=== PATIENT | female | born 1975 | race Caucasian/White ===

== ENCOUNTER 2018-05-05 12:45 | Emergency (ER) | payer MEDICAID ==
[2018-05-05 13:30] LABS: SQUAMOUS EPITHIAL 8 /hpf (0-5); URINE BACTERIA OCC (<OCC); URINE BILIRUBIN NEGATIVE (NEGATIVE); URINE BLOOD NEGATIVE (NEGATIVE); URINE CLARITY Hazy (Clear); URINE COLOR Yellow (YELLOW); URINE GLUCOSE (UA) NORMAL (Normal); URINE LEUKOCYTE ESTERASE 2+ Leu/uL (Negative); URINE PROTEIN NEGATIVE (NEGATIVE); URINE UROBILINOGEN NORMAL mg/dL (0.2-1.0)
--- NOTE | 2018-05-05 14:53 | C.PDOC ---
History Of Present Illness 42 y/o overweight female with hx kidney stone c/o 8 months of diffuse bilateral back pain; has seen pmd for this, has gone for pt for short while (not currently due to distance and insurance issues) and c/o persistent pain. pt also c/o left pelvic pain x 2 months; has been seen several times by her inside contractor sales; pt reports she was treated for uti with unknown antibiotic, had blood test to check for hormones and pelvic exam; pt sts she took one course of antibiotics and told uti resolved on f/u with travel freight and passenger agent, and told to take nsaid by travel freight and passenger agent. denies fever and chills. no vaginal discharge. Time Seen by Provider: 05/05/18 12:59 Chief Complaint (Nursing): Back Pain History Per: Patient History/Exam Limitations: no limitations Onset/Duration Of Symptoms: Days (months-many ) Current Symptoms Are (Timing): Still Present Quality Of Discomfort: "Pain" Severity: Moderate Previous Symptoms: Back Pain, Neck Pain Associated Symptoms: denies: New Weakness, New Numbness Exacerbating Factor(s): Turning, Movement Past Medical History Reviewed: Historical Data, Nursing Documentation, Vital Signs Vital Signs: Last Vital Signs Temp 98.3 F 05/05/18 15:45 Pulse 73 05/05/18 15:45 Resp 20 05/05/18 15:45 BP 116/74 05/05/18 15:45 Pulse Ox 100 05/05/18 15:45 - Medical History PMH: Kidney Stones Family History: States: Unknown Family Hx - Social History Hx Alcohol Use: No Hx Substance Use: No - Immunization History Hx Tetanus Toxoid Vaccination: No Hx Influenza Vaccination: No Hx Pneumococcal Vaccination: No Review Of Systems Constitutional: Negative for: Fever, Chills Cardiovascular: Negative for: Chest Pain Respiratory: Negative for: Cough, Shortness of Breath Gastrointestinal: Negative for: Nausea, Vomiting, Abdominal Pain Genitourinary: Positive for: Dysuria, Pelvic Pain. Negative for: Vaginal Discharge, Vaginal Bleeding Musculoskeletal: Positive for: Neck Pain, Back Pain Skin: Negative for: Rash Neurological: Negative for: Weakness, Numbness Physical Exam - Physical Exam Appears: Non-toxic, No Acute Distress, Other (overweight) Skin: Warm, Dry Head: Atraumatic, Normacephalic Eye(s): bilateral: Normal Inspection Oral Mucosa: Moist Neck: No Midline Cervical Tenderness, Paracervical Tenderness (bilateral), Supple Cardiovascular: Rhythm Regular, No Murmur Respiratory: No Decreased Breath Sounds, No Wheezing Gastrointestinal/Abdominal: Bowel Sounds, Soft, Tenderness (left pelvic area), No Distention, No Guarding, No Rebound Back: No CVA Tenderness, No Vertebral Tenderness, Paraspinal Tenderness ( bilateral lumbar area) Extremity: No Tenderness, No Swelling Neurological/Psych: Oriented x3, Normal Speech, Normal Cognition, Normal Motor, Normal Sensation ED Course And Treatment - Laboratory Results Urine POC: Negative O2 Sat by Pulse Oximetry: 97 - CT Scan/US transvaginal Other Rad Studies (CT/US): Read By Radiologist, Radiology Report Reviewed CT/US Interpretation: FINDINGS: UTERUS: Measures 10.5 x 4.8 x 6.5 cm. The anteverted. Normal in size and appearance. There is a calcified fundal fibroid that measures approximate 1.8 x 1.3 x 2.5. ENDOMETRIUM: Measures 10 mm in diameter. Unremarkable. CERVIX: No cervical abnormality identified. RIGHT OVARY: Measures 3.4 x 2.2 x 2.7 cm. No solid mass. Normal flow. There are 2 cysts of right ovary the largest measuring 1.8 cm in greatest dimension and the 2nd measuring 1.4 cm in greatest dimension. LEFT OVARY: Measures 3.4 x 2.1 x 3.2 cm. No solid mass. Normal flow. FREE FLUID: No significant free fluid noted. OTHER FINDINGS: None. IMPRESSION: There are 2 right ovarian cyst. Calcified fundal fibroid as above. . Medical Decision Making Medical Decision Makin42 y/o female with chronic back pain; not currently going to pt. recommend nsaid and muscle relaxant; also f/u pmd to further physical therapy. - also left pelvic pain x 2months- ua/upreg, uc transvag us to eval for cyst 1533 pt with no ovarian left cyst, will tx for back kelley wit nsaids and flexeril and cipro x 3 days for ut with pmd and travel freight and passenger agent f/u Disposition Counseled Patient/Family Regarding: Studies Performed, Diagnosis, Need For Followup, Rx Given - Disposition Referrals: Benjamin Dalton DO [Staff Provider] - Disposition: HOME/ ROUTINE Disposition Time: 15:34 Condition: GOOD Additional Instructions: Take antibiotics as prescribed. Take ibuprofen for pain. Take muscle relaxant when at home and not driving or working. Please follow up with your inside contractor sales in a week and follow up with Dr Dalton in a few days to arrange for you to go to physical therapy again. Prescriptions: Ciprofloxacin [Cipro] 500 mg PO BID #6 tab Cyclobenzaprine [Cyclobenzaprine HCl] 10 mg PO Q8 #9 tab Ibuprofen [Motrin] 600 mg PO TID #30 tab Instructions: Low Back Pain (DC), Urinary Tract Infection, Adult (DC), Ovarian Cyst (DC) Forms: [employer] (Hungarian), General Discharge Instructions - Clinical Impression Clinical Impression: Chronic back pain greater than 3 months duration, UTI (urinary tract infection) , Other ovarian cyst, right side
--- NOTE | 2018-05-05 15:32 | US ---
HISTORY: Left pelvic pain. eval for cyst COMPARISON: None available. TECHNIQUE: Transabdominal/transvaginal sonographic evaluation of the pelvis performed. FINDINGS: UTERUS: Measures 10.5 x 4.8 x 6.5 cm. The anteverted. Normal in size and appearance. There is a calcified fundal fibroid that measures approximate 1.8 x 1.3 x 2.5. ENDOMETRIUM: Measures 10 mm in diameter. Unremarkable. CERVIX: No cervical abnormality identified. RIGHT OVARY: Measures 3.4 x 2.2 x 2.7 cm. No solid mass. Normal flow. There are 2 cysts of right ovary the largest measuring 1.8 cm in greatest dimension and the 2nd measuring 1.4 cm in greatest dimension. LEFT OVARY: Measures 3.4 x 2.1 x 3.2 cm. No solid mass. Normal flow. FREE FLUID: No significant free fluid noted. OTHER FINDINGS: None. IMPRESSION: There are 2 right ovarian cyst. Calcified fundal fibroid as above. .
[2018-05-05 15:46] VITALS: BP 116/74; PULSE 73; RESP 20; TEMP 98.3
[2018-05-05 20:35] VITALS: O2SAT 97
== END 2018-05-05 15:45 | disposition home or self-care (01) ==
LOC: C.ER 12:45
DX: G89.29 Other chronic pain (principal); M54.9 Dorsalgia, unspecified; N39.0 Urinary tract infection, site not specified; N83.201 Unspecified ovarian cyst, right side